=== PATIENT | female | born 1985 | race Asian ===

== ENCOUNTER 2024-07-13 12:18 | Inpatient (IN) | payer OTHER, MEDICAID, SELFPAY ==
--- NOTE | 2024-07-09 13:39 | ESHP_ITS ---
RE: MICHEL HENDRICKS : 1985 DATE OF ADMISSION: 07/13/2024 HISTORY OF PRESENT ILLNESS: This is a 5, para 1-0-3-1 with intrauterine at 39 weeks and 4 day on 07/13/2024, who presents for induction of labor for advanced maternal age. The patient had a maternal medicine ultrasound on 06/24/2025, which showed growth at the 50th percentile. Her ultrasound today showed normal LONI with cephalic presentation. ALLERGIES: NO KNOWN DRUG ALLERGIES. MEDICATIONS: 1. multivitamin one p.o. daily. 2. Aspirin 81 mg one p.o. daily. 3. Omeprazole 20 mg one p.o. daily. 4. Budesonide/formoterol HFA 160 mcg--4.5 mcg per actuation. 5. Aerosol inhaler 2 puffs q. 12 hours p.r.n. shortness of breath and wheezing. PAST MEDICAL HISTORY: Advanced maternal age, asthma, infertility, ectopic , endometrial polyp. SOCIAL HISTORY: She is . She denies any alcohol drug use or smoking. 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 FAMILY HISTORY: Colon cancer, hypertension, stroke. OBSTETRIC HISTORY: In 10/2012, ectopic , left salpingectomy. In 2013, ectopic , treated with methotrexate. In 11/2020, ectopic , treated with methotrexate. On 03/09/2022, 39-week normal vaginal delivery, 6 pounds, male , vacuum- assisted vaginal delivery. PAST SURGICAL HISTORY: Left salpingectomy for ectopic in 10/2012, hysteroscopy and removal of endometrial polyp. REVIEW OF SYSTEMS: She denies any chest pain, palpitations, cough, fever, or shortness of breath or lower extremity pain. She denies any headache, change in vision or right upper quadrant pain. PHYSICAL EXAMINATION: VITAL SIGNS: Blood pressure is 123/68, heart rate 75, respirations 18, temperature 98.2, weight 184 pounds. HEENT: Oropharynx and sclerae are clear. LUNGS: Clear to auscultation bilaterally. HEART: Regular rate and rhythm. ABDOMEN: Gravid term size consistent with estimated weight of 7.5 pounds. PELVIC: See RN notes. EXTREMITIES: Nontender. SKIN: No gross rashes or lesions. NEUROLOGIC: No focal deficit. ASSESSMENT AND PLAN: Intrauterine at 39 weeks and 4 day on 07/13/2024, advanced maternal age, induction of labor, anticipate spontaneous vaginal delivery. Informed consent was obtained. The patient has been made aware of the risk of operative vaginal delivery and delivery and agrees with these modes of delivery if indicated. DT: 10:24:54 TT: 12:41:00 Ref: [id number] - TID: [id number] [facility]
[2024-07-13] VITALS (128 sets, daily range): BP systolic 89–117; BP diastolic 50–75; PULSE 66–117; RESP 16–18; TEMP 36.6; O2SAT 89–100; BMI 32.8
[2024-07-13 13:28] LABS: Basophils % (Auto) 1 % (0-2.5); Eosinophils # (Auto) 0.2 Thou/mm3 (0.0-0.5); Eosinophils % (Auto) 3 % (0-10); Hematocrit 36.6 % (36.0-46.0); Hemoglobin 12.3 g/dL (12.0-16.0); Immature Granulocytes % (Auto) 2 % (0-0); Immature Granulocytes Auto 0.14 Thou/mm3 (0.00-0.00); Lymphocytes # (Auto) 1.5 Thou/mm3 (1.0-4.8); Lymphocytes % (Auto) 18 % (10-50); Mean Corpuscular HGB Conc 33.6 g/dl (31.0-37.0); Mean Corpuscular Hemoglobin 29.4 pg (25.0-35.0); Mean Corpuscular Volume 87 fL (80-100); Monocytes # (Auto) 0.7 Thou/mm3 (0.0-0.8); Monocytes % (Auto) 8 % (0-12); Neutrophils # (Auto) 5.9 Thou/mm3 (1.8-7.7); Neutrophils % (Auto) 69 % (37-80); Nucleated Red Blood Cell % 0 /100 WBC (0); Platelet Count 216 Thou/mm3 (140-440); RDW Standard Deviation 45.7 fL (36.4-46.3); Red Blood Count 4.19 Miln/mm3 (4.00-5.20); White Blood Count 8.5 Thou/mm3 (3.6-11.0)
[2024-07-13] MEDS: DINOPROSTONE 10 MG VAG.SUPP VAGINAL (13:45)
[2024-07-13 14:04] LABS: Syphilis Nonreactive (Nonreactive)
[2024-07-14] VITALS (202 sets, daily range): BP systolic 81–131; BP diastolic 46–83; PULSE 65–207; RESP 18; TEMP 36.6–36.9; O2SAT 78–100
[2024-07-14] MEDS: MISOPROSTOL 50 mCg TABLET PO ×4 (03:12→20:01)
--- NOTE | 2024-07-14 07:47 | PD.LDPN ---
Documentation for date of: 07/14/24 OB Labor Progress Note Pain Control Comments: None Pelvic Exam Comments: See RN notes Contractions Contraction frequency: q 3 minutes Status status: Category l Assessment and Plan Comments: Cervical ripening on going (S/P cervidil x 12 hours ) now receiving Cytotect 50 mcg orally q 4 h . No problems or complaints.
[2024-07-15] VITALS (259 sets, daily range): BP systolic 79–156; BP diastolic 44–92; PULSE 64–151; RESP 13–24; TEMP 36.6–36.8; O2SAT 66–100
[2024-07-15] MEDS: DINOPROSTONE 10 MG VAG.SUPP VAGINAL (00:46)
--- NOTE | 2024-07-15 07:36 | PD.LDPN ---
Documentation for date of: 07/15/24 OB Labor Progress Note Pain Control Comments: None Pelvic Exam Comments: See RN notes Contractions Contraction frequency: Irregular Status status: Category l Assessment and Plan Comments: Induction of labor ongoing Status post Cervidil x 1 and Cytotec orally x 4 currently receiving Cervidil second round I discussed with the patient prior to initiating a second round of Cervidil her options of discharge home with follow-up to proceed with induction in a few days versus continuing with the cervical ripening and the patient elected to continue cervical ripening
[2024-07-15] MEDS: OXYTOCIN in NS 30 units 30 UNIT/500 ML BAG IV (14:39)
--- NOTE | 2024-07-15 16:36 | PD.LDPN ---
Documentation for date of: 07/15/24 OB Labor Progress Note Pain Control Comments: Epidural Pelvic Exam Dilation (cm): 10 Effacement (%): 100 station: -1 Amniotic membrane status: Ruptured Comments: Contractions Contraction frequency: q3-4 min Status status: Category ll Assessment and Plan Comments: Fully dilated for 2 hours and no passive descent of the head with station remaining -1 With maternal expulsive efforts head does not descend and heart rate decelerates during the pushing effort to 60's despite change in position (prolonged decelerations) scalp electrode will not give an accurate reading due to artifact despite a well applied scalp electrode and troubleshooting was performed. Recommend Delivery. Informed consent obtained patient was made aware of the risks, complications, alternatives and benefits of the proposed procedure and she agrees.
--- NOTE | 2024-07-15 18:58 | PD.LDDS ---
DS: Providers Provider Date of admission: 07/13/24 12:18 Primary care physician: Physician No Primary/Family Admitting Provider: Les Jolly MD Attending Provider on Admission: Les Jolly MD Attending Provider on DC: Les Jolly MD Discharging Provider: Les Jolly MD DS: Diagnosis Problem List Completed Was Problem List Reviewed/Reconciled?: Yes Summary/Hosp Course Peripartum Data Procedures: Procedures Operation Date: 07/15/24 17:45 <No data on this case meets the specified criteria> Time Spent with Patient Time attestation: Total time spent providing and/or coordinating discharge services: Exam Vital Signs Temp Pulse Resp BP Pulse Ox 98.2 F 100 18 107/62 100 07/15/24 00:30 07/15/24 17:19 07/14/24 12:49 07/15/24 17:19 07/15/24 17:21 Discharge Plan Plan Patient Disposition: HOME (Self Care) Patient condition on transfer: Stable Prescriptions/Referrals Prescriptions/Med Rec: New hydrocodone-acetaminophen 5-325 mg tablet 1 tab PO Q6H MDD 4 PRN (Reason: pain) Qty: 20 0RF ibuprofen 600 mg tablet 600 mg PO Q6H PRN (Reason: pain) Qty: 30 0RF amoxicillin-pot clavulanate 875-125 mg tablet 1 tab PO Q12H Qty: 10 0RF hydrochlorothiazide 25 mg tablet 25 mg PO QDAY PRN (Reason: ankle swelling) Qty: 7 0RF No Action 27 mg iron- 0.8 mg Tablet 27 tab PO QDAY aspirin 81 mg tablet,delayed release (DR/EC) 81 mg PO QDAY Patient Comments: TAKE 1 TABLET BY MOUTH EVERY DAY Referrals: No Primary/Family,Physician [Primary Care Provider] - Patient/Caregiver Discharge Instructions Discharge Activity: activity as tolerated Other Discharge Activity Instructions:: Follow up office 1 week. Education Materials: C Section Dc Print Language: Hungarian Stand Alone Forms: Britni Award Info., Patient Portal Info Letter Discharge Order Discharge Orders: Discharge (Routine); Ordered 07/17/24 Ordered By: Les Jolly Planned Discharge Date 07/17/24
[2024-07-15] MEDS: MISOPROSTOL 200 mCg TABLET 800 MCG PR (19:15)
[2024-07-15 20:19] LABS: Basophils # (Auto) 0.1 Thou/mm3 (0.0-0.2); Basophils % (Auto) 0 % (0-2.5); Eosinophils # (Auto) 0.1 Thou/mm3 (0.0-0.5); Eosinophils % (Auto) 0 % (0-10); Hematocrit 36.4 % (36.0-46.0); Hemoglobin 12.1 g/dL (12.0-16.0); Immature Granulocytes % (Auto) 1 % (0-0); Lymphocytes # (Auto) 1.3 Thou/mm3 (1.0-4.8); Lymphocytes % (Auto) 7 % (10-50); Mean Corpuscular HGB Conc 33.2 g/dl (31.0-37.0); Mean Corpuscular Hemoglobin 29.6 pg (25.0-35.0); Mean Corpuscular Volume 89 fL (80-100); Monocytes # (Auto) 1.4 Thou/mm3 (0.0-0.8); Monocytes % (Auto) 7 % (0-12); Neutrophils # (Auto) 16.8 Thou/mm3 (1.8-7.7); Neutrophils % (Auto) 85 % (37-80); Nucleated Red Blood Cell % 0 /100 WBC (0); Platelet Count 180 Thou/mm3 (140-440); RDW Standard Deviation 46.7 fL (36.4-46.3); Red Blood Count 4.09 Miln/mm3 (4.00-5.20); White Blood Count 19.7 Thou/mm3 (3.6-11.0)
--- NOTE | 2024-07-15 20:27 | XR_ITS ---
Examination: Abdomen AP single view Technique: AP portable supine abdomen, single view Exam date and time: July 15, 2024 0840 hrs. Indications: Missing instrument count Findings: No opaque foreign body consistent with intravenous administration noted Moderate air and stool throughout the colon No free air Impression: No opaque foreign body is noted
[2024-07-15] MEDS: KETOROLAC INJ 30 MG/ML VIAL IVP (21:09)
[2024-07-15] MEDS: OXYTOCIN in NS 20 units 20 UNIT/1,000 ML BAG 125 UNIT IV (21:14)
[2024-07-15] MEDS: ACETAMINOPHEN IVPB 1,000 MG/100 ML VIAL 250 MG IV (21:17)
[2024-07-15] MEDS: ONDANSETRON INJ 2 MG/ML INJ 2 ML 4 MG IV (21:54)
[2024-07-16 00:15] VITALS: BP 106/71; PULSE 76; RESP 16; TEMP 36.4; O2SAT 95
[2024-07-16] MEDS: AMPICILLIN/SULBAC INJ 3 GM in SODIUM CHLORIDE 0.9% (P) 100 ML IV ×5 (00:21→23:58)
[2024-07-16] MEDS: ACETAMINOPHEN IVPB 1,000 MG/100 ML VIAL 250 MG IV ×3 (02:44→14:41)
[2024-07-16 04:30] VITALS: BP 94/62; PULSE 77; RESP 16; TEMP 36.6; O2SAT 98
[2024-07-16 06:14] LABS: Basophils # (Auto) 0.1 Thou/mm3 (0.0-0.2); Basophils % (Auto) 0 % (0-2.5); Eosinophils # (Auto) 0.1 Thou/mm3 (0.0-0.5); Eosinophils % (Auto) 0 % (0-10); Hematocrit 32.9 % (36.0-46.0); Hemoglobin 11.3 g/dL (12.0-16.0); Immature Granulocytes % (Auto) 1 % (0-0); Lymphocytes # (Auto) 1.9 Thou/mm3 (1.0-4.8); Lymphocytes % (Auto) 11 % (10-50); Mean Corpuscular HGB Conc 34.3 g/dl (31.0-37.0); Mean Corpuscular Hemoglobin 29.6 pg (25.0-35.0); Mean Corpuscular Volume 86 fL (80-100); Monocytes # (Auto) 1.3 Thou/mm3 (0.0-0.8); Monocytes % (Auto) 7 % (0-12); Neutrophils # (Auto) 14.2 Thou/mm3 (1.8-7.7); Neutrophils % (Auto) 81 % (37-80); Nucleated Red Blood Cell % 0 /100 WBC (0); Platelet Count 156 Thou/mm3 (140-440); RDW Standard Deviation 47.7 fL (36.4-46.3); Red Blood Count 3.82 Miln/mm3 (4.00-5.20); White Blood Count 17.6 Thou/mm3 (3.6-11.0)
[2024-07-16 06:49] LABS: Fibrinogen 330 mg/dL (175-375); Prothrombin Time 10.9 Seconds (9.0-12.2)
[2024-07-16 07:06] LABS: D-Dimer 1030 ng/mL (<600)
[2024-07-16 07:11] LABS: Alanine Aminotransferase < 7 U/L (10-49); Albumin/Globulin Ratio 1.6 (1.2-2.2); Alkaline Phosphatase 97 U/L (46-116); Anion Gap 8 (7-16); Aspartate Amino Transferase 12 U/L (0-34); BUN/Creatinine Ratio 10 Ratio (12-20); Bilirubin,Total 0.5 mg/dL (0.3-1.2); Blood Urea Nitrogen 5 mg/dL (9-23); Calcium (Corrected) 8.8 mg/dL (8.5-10.1); Chloride 105 mMol/L (98-107); Creatinine (Component) 0.5 mg/dL (0.6-1.3); Estimated Creatinine Clearance 158.3 mL/min (>60); Globulin 1.9 gm/dL (2.3-3.5); Glucose 103 mg/dL (74-106); Osmolality,Calculated 271 (275-295); Potassium 3.6 mMol/L (3.4-5.1); Sodium 137 mMol/L (136-145); Total Protein 4.9 gm/dL (5.7-8.2); eGFR > 60 See Note
--- NOTE | 2024-07-16 07:15 | PD.LDDELS ---
Data (Young) Data : 5 Para: 1 Term: 1 : 0 : 3 Delivery Data (Young) Labor Data ROM Date: 07/15/24 ROM Time: 14:31 Rupture Type: AROM Amniotic Fluid: Clear Delivery Data EDC: 07/16/24 EDC calculated by:: LMP/early US confirmation Labor Onset Stage 1 Date: 07/15/24 Labor Onset Stage 1 Time: 14:31 Labor Onset Stage 2 Date: 07/15/24 Labor Onset Stage 2 Time: 16:40 Delivery Date: 07/15/24 Delivery Time: 17:59 Gestational age (weeks): 39 Gestational age (days): 6 Placenta Delivery Date: 07/15/24 Placenta Delivery Time: 18:00 Delivered by: Les Jolly Delivery nurse: Scott Isaac Other staff at delivery: Nursery Nurse Other staff at delivery: Scrub Other staff at delivery: Power [employer] Control Room Operator Other staff at delivery: Vanessa Gonsales Other staff at delivery: mer Other staff at delivery: [email or web address] Delivery Method Delivery: Delivery Type: Primary Presentation: Vertex Position: OP Anesthesia Type Primary Anesthesia: Epidural Secondary Anesthesia: General EBL Estimated blood loss (ml): 1,500 Additional Procedures Repair of lower uterine segment laceration Ligation of left uterine artery Complications Complications: Uterine atony Left lower uterine segment laceration Left uterine artery laceration Data (Young) Data Infant Gender: Female Infant Weight Grams: 3110 1 Minute Total: 8 5 Minute Total: 9
[2024-07-16 07:53] VITALS: BP 90/57; PULSE 85; RESP 17; TEMP 36.6; O2SAT 96
--- NOTE | 2024-07-16 09:52 | PC.LAC ---
Mom stated attempted to latch baby, she did not latch so gave formula at this time. Explained that latching could be hard because baby is getting bottles in between. Will help mom at next feeding to latch baby. Issued mom a pump and kit to start using for stimulation, since baby is getting bottles with formula at this time. Explained hand massage and pumping cycle and times.
--- NOTE | 2024-07-16 10:00 | ESPR_ITS ---
RE: MICHEL HENDRICKS : 1985 DATE OF SERVICE: 07/16/2024 S: Postop day #1, the patient denies any problem or complaints. She got adequate urine output with Mas catheter in place. She denies any excessive vaginal bleeding. She denies any dizziness or lightheadedness. She denies any chest pain, palpitations, shortness of breath or lower extremity pain. She denies any nausea or vomiting. She denies passing flatus. O: Vitals Signs: Blood pressure 94/62, heart rate 77, respirations 16, temperature 97.8, and pulse ox is 98% on room air. Lungs: Clear to auscultation bilaterally. Heart: Regular rate and rhythm. Abdomen: Fundus is firm. Dressing dry and intact. Extremities: Nontender. No edema. Laboratory Data: Hemoglobin pre-delivery is 12.3, post delivery after 2 units of packed red blood cells is 11.3, platelet count post op was originally reported to be 8,000, but the lab reported an error and the CBC was repeated and the platelet count was 156,000. PT/PTT, fibrinogen within normal limits. A: 1. Postop day #1, status post delivery complicated by uterine atony, uterine artery laceration and lower uterine segment laceration, status post repair. S/P transfusion of 2 upRBCs. 2. Lab error of platelet count. No evidence of disseminated intravascular coagulation or thrombocytopenia. P: Discontinue Mas catheter. Encourage ambulation. Maintain Unasyn for presumptive endometritis given the circumstances in the low station at delivery. I discussed with the patient, the nature of her condition, the intraoperative findings, and expectations of recovery. All questions answered. DT: 07:11:23 TT: 09:58:00 Ref: [id number] - TID: [id number] MTDNael
--- NOTE | 2024-07-16 15:37 | ESOP_ITS ---
RE: MICHEL HENDRICKS : 1985 DATE OF OPERATION: 07/15/2023 PREOPERATIVE DIAGNOSES: Intrauterine at 39 weeks and 6 days. Recurrent prolonged decelerations during pushing second stage of labor, No descent of head with pushing Advanced maternal age. Induction of labor. POSTOPERATIVE DIAGNOSES: Intrauterine at 39 weeks and 6 days. Recurrent prolonged decelerations during pushing second stage of labor, No descent of head with pushing Advanced maternal age. Induction of labor. Occiput posterior. COMPLICATIONS: Uterine atony, left uterine artery laceration and left lower uterine segment laceration. PROCEDURE: A primary low transverse section via Pfannenstiel skin incision, ligation of uterine artery, repair of lower uterine segment laceration. SURGEON: Les Jolly D.O. GRADES 1 THROUGH 5 TEACHER: KINJAL Dorman. ANESTHESIA: Spinal with general endotracheal intubation. ANESTHESIOLOGIST: Jose De Jesus Akbar CRNA. FINDINGS: A live infant. , see RN notes. Cord pH, see labs. Placenta removed completely intact. A left uterine artery laceration and left lower uterine segment laceration. DESCRIPTION OF PROCEDURE: After appropriate informed consent was obtained and the patient was made aware of the risks, complications, alternatives and benefits of the proposed procedure, she was taken to the operating room where she underwent induction of spinal anesthesia. She began to complain of shortness of breath after the procedure started, so she was subsequently intubated after the baby delivered. A Pfannenstiel skin incision was made with a scalpel and carried through to the underlying layer of fascia with the Bovie. The fascia was nicked in the midline. The incision was extended bilaterally with the Bovie. The inferior aspect of the fascia incision was grasped with Daryn clamps and elevated. The underlying rectus muscles were dissected off with the Bovie. The rectus muscles were in the midline. The peritoneum was identified between two Yin clamps and entered sharply with Metzenbaum scissors. The incision was extended superiorly and inferiorly with good visualization of the bladder. A bladder blade was inserted. Vesicouterine peritoneum was incised transversely and bladder flap created digitally. Bladder blade was re-inserted. The lower uterine segment was incised in a transverse fashion with a scalpel. The incision was extended bilaterally digitally. The 's head delivered. The mouth and nose suctioned with the bulb suction. Shoulder and body delivered atraumatically. The cord was clamped and cut. The was handed off to the waiting pediatric staff. Cord blood and gases were sent. Placenta was removed manually. The uterus was exteriorized and cleared of all clots and debris and the uterine artery was ligated and the repair of the lower uterine segment was performed with 1 chromic catgut suture. The uterus was irrigated with normal saline solution and the uterine incision was closed with #1-0 chromic catgut suture in a running locking fashion. A second layer of same suture was used to imbricate the first layer, 0 chromic catgut suture was used on the lower uterine segment for hemostasis. The lower uterine segment was observed for several minutes and found to be completely hemostatic. The vesicouterine peritoneum was closed with 2-0 chromic catgut suture in running fashion. The fundus was firm. The uterus was returned to the abdomen. The gutters were cleared of all clots and debris. The peritoneum was closed with 0 chromic catgut suture in running fashion. The muscle was closed with a chromic catgut suture in a running fashion. The fascia was closed with 0 Vicryl, beginning at each angle, ending in the center in a running fashion. Subcutaneous tissue was irrigated with normal saline solution, found to be hemostatic, closed with 2-0 chromic catgut suture in running fashion. The skin was closed with 4-0 Monocryl. A Dermabond Prineo dressing was applied. A sterile pressure dressing was applied. She tolerated the procedure well. Counts were correct. I discussed with the patient's the nature of her condition, intraoperative findings, expectation for recovery. All questions answered. DT: 19:08:39 TT: 20:22:00 Ref: [id number] - TID: [id number] MTDD
[2024-07-16] MEDS: IBUPROFEN TAB 400 MG TABLET 800 MG PO (17:18)
[2024-07-16 21:58] VITALS: BP 98/64; PULSE 64; RESP 18; TEMP 36.5; O2SAT 99
--- NOTE | 2024-07-16 22:24 | PC.NURSE ---
@[id number] called to inform of pt condition. Pt has swollen legs and c/o difficulty of walking, pt mentioned she had this condition as well for her prior and had taken hydrochlorothiazide. Per Dr. Jolly, start pt on hydrochlorothiazide 25mg PO BID.
[2024-07-16] MEDS: ACETAMINOPHEN 325 MG TABLET 650 MG PO (22:32)
[2024-07-16] MEDS: SIMETHICONE 80 MG CHEW PO (22:32)
[2024-07-17] MEDS: IBUPROFEN TAB 400 MG TABLET 800 MG PO ×2 (01:20→12:30)
[2024-07-17 05:52] VITALS: BP 90/58; PULSE 63; RESP 18; TEMP 36.3; O2SAT 98
[2024-07-17] MEDS: AMPICILLIN/SULBAC INJ 3 GM in SODIUM CHLORIDE 0.9% (P) 100 ML IV ×2 (05:57→12:20)
[2024-07-17] MEDS: ACETAMINOPHEN 325 MG TABLET 650 MG PO ×2 (05:57→15:41)
[2024-07-17 08:07] VITALS: BP 112/73; PULSE 68; RESP 18; TEMP 36.8; O2SAT 98
[2024-07-17] MEDS: Milk Of Magnesia Susp 30 ML UDC PO (08:43)
[2024-07-17 08:53] VITALS: BP 112/73; PULSE 68
[2024-07-17] MEDS: hydroCHLOROthiazide 12.5 MG CAPSULE 25 MG PO (08:53)
--- NOTE | 2024-07-17 09:08 | ESPR_ITS ---
RE: MICHEL HENDRICKS : 1985 DATE OF SERVICE: 07/17/2024 SUBJECTIVE: Postop day #2, the patient denies any problem or complaint. She is voiding. She is ambulating. She is tolerating diet. She is passing flatus. She denies any excessive vaginal bleeding. She denies any dizziness or lightheadedness. She denies any chest pain, palpitations, shortness of breath, or lower extremity pain. She had lower extremity ankle edema and would like hydrochlorothiazide for relief. OBJECTIVE: Vital Signs: Blood pressure 90/58, heart rate 63, respirations 18, temperature 97.3, pulse ox is 98% on room air. Lungs: Clear to auscultation bilaterally. Heart: Regular rate and rhythm. Abdomen: Nondistended. Incision clear and intact. Fundus is firm. Extremities: Nontender. Lower extremity edema. ASSESSMENT: 1. Postop day #2, status post delivery, complicated by uterine atony, uterine artery laceration, and lower uterine segment laceration with repair and status post transfusion of 2 units of packed red blood cells. PLAN: Hydrochlorothiazide 25 mg one p.o. daily. Dulcolax for bowel movement assistance and if continues to improve, discharge home later today on Augmentin with followup in the office in one week. Discharge instructions were given. DT: 06:54:04 TT: 09:07:00 Ref: [id number] - TID: [id number]
[2024-07-17 09:16] LABS: Basophils # (Auto) 0.1 Thou/mm3 (0.0-0.2); Basophils % (Auto) 0 % (0-2.5); Eosinophils # (Auto) 0.3 Thou/mm3 (0.0-0.5); Eosinophils % (Auto) 2 % (0-10); Hemoglobin 10.5 g/dL (12.0-16.0); Immature Granulocytes % (Auto) 1 % (0-0); Lymphocytes # (Auto) 1.4 Thou/mm3 (1.0-4.8); Lymphocytes % (Auto) 9 % (10-50); Mean Corpuscular HGB Conc 33.9 g/dl (31.0-37.0); Mean Corpuscular Hemoglobin 29.6 pg (25.0-35.0); Mean Corpuscular Volume 87 fL (80-100); Monocytes # (Auto) 0.8 Thou/mm3 (0.0-0.8); Monocytes % (Auto) 5 % (0-12); Neutrophils # (Auto) 12.7 Thou/mm3 (1.8-7.7); Neutrophils % (Auto) 83 % (37-80); Nucleated Red Blood Cell % 0 /100 WBC (0); Platelet Count 177 Thou/mm3 (140-440); RDW Standard Deviation 48.5 fL (36.4-46.3); Red Blood Count 3.55 Miln/mm3 (4.00-5.20); White Blood Count 15.4 Thou/mm3 (3.6-11.0)
[2024-07-17] MEDS: bisacodyL 5 MG TABEC PO (12:20)
[2024-07-17] MEDS: SIMETHICONE 80 MG CHEW PO (15:42)
[2024-07-17 16:00] VITALS: BP 118/67; PULSE 63; RESP 18; TEMP 36.8; O2SAT 100
== END 2024-07-17 17:17 | disposition home or self-care (01) | DRG 788 ==
LOC: S4SX 07-15 16:59 → S4NX 07-15 17:36
PROVIDERS: Admitting Provider Specialist; Visit Provider Specialist
PROC: 10D00Z1 Extraction of Products of Conception, Low, Open Approach (ICD-10-PCS; CPT 59514; principal; 2024-07-15 17:30)
DX: O62.2 Other uterine inertia (principal); O76 Abnormality in fetal heart rate and rhythm complicating labor and delivery; Z37.0 Single live birth; O71.81 Laceration of uterus, not elsewhere classified; Z3A.39 39 weeks gestation of pregnancy
CPT/HCPCS: 36415; 74018; 80053; 85025; 85049; 85379; 85384; 85610; 85730; 86780; 86850; 86900; 86901; 86923; 86927; 86965; A4649; J0131; J0295; J1885; J2210; J2250; J2274; J2371; J2405; J2590; J2704; J2795; J3010; J3490; P9016; S0191; A9270; J2270

== ENCOUNTER 2024-08-07 14:58 | Outpatient (AMBR) | payer OTHER, MEDICAID, SELFPAY ==
--- NOTE | 2024-08-07 16:14 | LAC.VISIT ---
Assessment LAC OP History History Hx of Breast Surgery: No Hx of Breast Feeding Problems: Yes History Comment: mother states that her first child had a tongue tie and had many issues when she was nursing him that did not resolve until after they had his tie clipped. LAC Pain Pain Bilateral Nipple: Pain Intensity: Moderate (4-6) Character of Pain: Stabbing and Sharp Pain Comment: mom states that it happens each time she latches baby. states that it is very sharp and does go away for a few seconds. she always trys to pull out babys bottom lip as she sucks it in as she nurses. Alternative Milk Expression Alternative Milk Expression Alternative Method Used: Yes Method Used: Pumping Alternative Method Comment: mom states pumping is going well she gets about 2 ounces from each breast. states when she nurses baby she wears the hakka on the opposite side to catch all milk that leaks, which is about 2 ounces. Alternative Method Used Reason: Poor Feeding and Sore Nipples Alternative Method Produced Milk / Colostrum: Yes Production Amount: 4 Pump Used: Electric Pumping Frequency Per Day: 4 LAC Assessment Breast Feeding Assessment Date of : 07/15/24 Current Age of baby: 3 (weeks) Weight: 2785.057 g Current weight of baby: 3674.098 g Oxford # of Stool voids in last 24 hrs: 4 Stool Size: Medium Color of Stools: yellow # of Urine voids in last 24 hrs: 6 Breast Feeding Ability: Fair Complications: Difficult Latch Complications Comment: baby falls asleep during feed, does not always stay on to empty breast. wakes up soon after to feed again. baby at the breast also sounds like she is having a hard time breathing. mom has fast let down and fast flow of milk. baby struggles to compensate for so much milk. Oxford Activity Level: Awake / Alert Muscle Tone: With In Normal Limits Oxford Suck Quality: Areolar Compression, Rhythmic and Tongue Retracts Effective Oxford Suck: Yes Swallow: Audible and Observed Jaw: Receding Oxford Lip Seal: Chomping and Tight Lips Feeding Posistion: Cross Cradle Additional Latch or Posistion Assistance Needed: Minimal Breast Feeding Comment: mom does well with positioning. baby not getting the deepest latch and sucks in her bottom lip. tight upper lip as well, makes it hard to stay on high on the breast. mom feels pain so we adjusted to get deeper latch which did help. baby does not stay on more than 6 minutes. issued a nipple shield to help mom in assisting keeping baby in good latch and not too taxing for baby. Pre Weight (before feeding): 3628.739 g Post Weight (post feeding): 3683.17 g % gained or lost: 1% Gain LAC Intervention Interventions Tools: Nipple Shield Nipple Shield Size: Medium Techniques Discussed: Latch Discharge Follow Up Appointment Date and Time: August 14, 2024 LAC Latch Score LATCH Score Latch: Grasps Breast, Rythmic Suck Audible Swallow: Few, With Stimulation Nipple Type: Everted After Stimulation Comfort: Red, Small Blisters, Bruises Hold: Minimal Assistance Needed Total Score: 7 LAC Oxford Oral Assessment Oral Assessment Prenulum Level: Posterior Lip: Normal Exam Palate: High Dental Referral made: Yes OP DC Assessment Discharge Follow Up Appointment Date and Time: August 14, 2024 Visit Complete?: Yes
== END 2024-08-09 23:59 | disposition home or self-care (01) ==
LOC: HODLAC 14:58
DX: Z39.1 Encounter for care and examination of lactating mother (principal)

== ENCOUNTER 2024-08-27 14:14 | Outpatient (AMBR) | payer OTHER, MEDICAID, SELFPAY ==
--- NOTE | 2024-08-27 16:55 | LAC.VISIT ---
Assessment LAC OP History History History Comment: previously mom was having difficulty nursing baby, she would not stay on breast. kept sliding off. had nipple pain and baby not gaining appropriatly. Alternative Milk Expression Alternative Milk Expression Alternative Method Used: Yes Method Used: Pumping Alternative Method Comment: mom has been pumping breasts since before lip tie release on August 13. she is able to get several ounces out per side and has a good really good supply of milk stored. Alternative Method Used Reason: Sore Nipples LAC Assessment Breast Feeding Assessment Date of : 07/14/24 Current Age of baby: 6 (weeks) Current weight of baby: 4672.001 g Breast Feeding Ability: Well Heartwell Complications: Difficult Latch Complications Comment: baby is doing much better with latch since lip tie release. increase in weight in last few weeks has been 1 lb 9 oz. Mom states she feels baby refuses the left side due to fast flow. explained to hand express or pump that side prior to feed to help with the fast flow. mom stated understanding. Heartwell Activity Level: Sleepy Jaw: With In Norml Limits Heartwell Lip Seal: Good Feeding Posistion: Cross Cradle LAC Oral Assessment Oral Assessment Prenulum Level: Posterior Lip: Normal Exam Palate: Normal / Intact Dental Referral made: No OP DC Assessment Discharge Visit Complete?: Yes
== END 2024-09-06 23:59 | disposition home or self-care (01) ==
LOC: HODLAC 14:14
DX: Z39.1 Encounter for care and examination of lactating mother (principal)

== ENCOUNTER 2024-10-02 11:09 | Outpatient (AMBR) | payer OTHER, MEDICAID, SELFPAY ==
--- NOTE | 2024-10-02 14:50 | LACNOTE_ITS ---
Assessment Alternative Milk Expression Alternative Milk Expression Alternative Method Used: Yes Method Used: Pumping Alternative Method Comment: mom is exclusively pumping to feed baby as she is refusing to breatfeed at all. babys lip tie clipped on August 22 at [facility]. Provider felt that tongue had lateral and vertical movement and thus did not deem bad enough to clip tie. Mom has struggled with keeping baby at breast. sighting the same issues as before, long, arduous feeds with clamping down on nipple as well as pulling on nipple. Alternative Method Used Reason: Poor Feeding Alternative Method Produced Milk / Colostrum: Yes Production Amount: 25 Production ounces or mls: ounces (in 24 hours) Pump Used: Electric Pumping Frequency Per Day: 8 LAC Intervention Interventions Tools: Nipple Shield and Pump Other Tools: mom states that even with nipple shield baby is refusing breast, so has gone strictly to bottle feeding. At this time baby is also starting to refuse bottle feeds. Nipple Shield Size: Medium Techniques Discussed: Latch Discharge Follow Up Appointment Date and Time: will follow up after 2nd opinion consult for tongue Other Referral Made: Yes Feeding Preference at Discharge: Exclusive Pumped Brst Mlk Out Patient Instructional Services Librarian: Referral to Baby Chiropractor to help with bodywork for ties LAC Zenda Oral Assessment Zenda Oral Assessment Prenulum Level: Posterior Lip: Normal Exam Palate: High Dental Referral made: Yes Oral Assessment Comment: will refer back to [facility] per patient request, or to whomever can see them for possible tongue tie. LAC Education Education : Education Topic Comment: stressed importance to make sure baby is fed, explained that for babys age and weight she should be taking 2.9 ounces of milk 8 times a day. at this time parents state that baby will take about 1 ounce and then become very fussy and arch back and tense shoulders and refuse to continue eating. this was observed today in the consult. baby refused to latch to bottle. after having baby suck on my finger noticed baby is clamping down and tongue thrusting my finger. she intermittently sucked, but suck was week. she got fussy very quickly, which parents state is normal for her at this point in the feed. mom finally able to get baby to stay on bottle for 20 minute, but baby only took down 1 ounce of milk in the 20 minutes. fell asleep hard after this. Gave recommendations for positioning as well as different bottle and nipples that could aid in feed. OP DC Assessment Discharge Follow Up Appointment Date and Time: will follow up after 2nd opinion consult for tongue Other Referral Made: Yes Out Patient Instructional Services Librarian: Referral to Baby Chiropractor to help with bodywork for ties Visit Complete?: Yes
== END 2024-10-07 23:59 | disposition home or self-care (01) ==
LOC: HODLAC 11:09
DX: Z39.1 Encounter for care and examination of lactating mother (principal)